=== PATIENT | female | born 1980 | race Caucasian/White ===

== ENCOUNTER → 2021-07-09 | Outpatient (CLI) | payer BC | LOC: M.ULTRA 15:19 | PROVIDERS: ATTEND Specialist | DX: M25.852 Other specified joint disorders, left hip (principal); R22.42 Localized swelling, mass and lump, left lower limb ==

== ENCOUNTER → 2021-08-06 | Outpatient (CLI) | payer OTHER ==
[~2021-08-06] MED LIST: ADDERALL XR 1010 MG PO; CHLORPROMAZINE100 MG PO; FLEXERIL PO; LAMICTAL5 MG PO; ZESTRIL10 MG PO; ZOLOFT50 M1 PO
== END ==
LOC: M.MRI 07-23 07:30
PROVIDERS: ATTEND Specialist
DX: S73.192A Other sprain of left hip, initial encounter (principal); M89.8X8 Other specified disorders of bone, other site; X58.XXXA Exposure to other specified factors, initial encounter; Y93.89 Activity, other specified; Y92.89 Other specified places as the place of occurrence of the external cause; Y99.8 Other external cause status

== ENCOUNTER 2021-08-13 14:51 | Emergency (ER) | payer BC ==
[~2021-08-13] VITALS: Ht 152.4 cm; Wt 72.6 kg
[2021-08-13] MEDS ORDERED: LAMICTAL5 MG PO (14:57)
[2021-08-13] MEDS ORDERED: ZESTRIL10 MG PO (14:57)
[2021-08-13] MEDS ORDERED: ADDERALL XR 1010 MG PO (14:57)
[2021-08-13] MEDS ORDERED: ZOLOFT50 M1 PO (14:58)
[2021-08-13] MEDS ORDERED: CHLORPROMAZINE100 MG PO (14:58)
[2021-08-13] MEDS ORDERED: FLEXERIL PO (16:26)
[2021-08-13 16:30] VITALS: BP 132/45
== END 2021-08-13 16:31 | disposition home or self-care (01) ==
LOC: M.ERS 14:51
DX: M25.552 Pain in left hip (principal); M79.652 Pain in left thigh; F31.9 Bipolar disorder, unspecified; G43.909 Migraine, unspecified, not intractable, without status migrainosus; Z90.49 Acquired absence of other specified parts of digestive tract; Z98.51 Tubal ligation status; Z90.89 Acquired absence of other organs; Z79.899 Other long term (current) drug therapy; Z88.1 Allergy status to other antibiotic agents; Z88.2 Allergy status to sulfonamides